=== PATIENT | female | born 2000 | race Caucasian/White ===

== ENCOUNTER 2024-06-03 16:46 | Emergency (ER) | payer BC, OTHER ==
[2024-06-03 18:05] LABS: BASOPHILS PERCENT AUTO 0.3 % (0.0-1.0); EOSINOPHILS PERCENT AUTO 0.3 % (0.0-6.0); HEMOGLOBIN 15.1 gm/dl (12.0-16.0); IMMATURE GRAN ABSOLUTE AUTO 0.04 K/mm3 (0.00-0.05); IMMATURE GRAN PERCENT AUTO 0.3 % (0.0-0.4); LYMPHOCYTES ABSOLUTE AUTO 1.8 K/mm3 (1.0-4.8); LYMPHOCYTES PERCENT AUTO 14.5 % (24.0-44.0); MEAN CORPUSCULAR HGB CONC 33.6 g/dl (32.0-36.0); MEAN CORPUSCULAR VOLUME 86.4 fl (83.0-99.0); MEAN PLATELET VOLUME 9.4 fl (9.4-12.3); MONOCYTES ABSOLUTE AUTO 0.8 K/mm3 (0.0-0.8); MONOCYTES PERCENT AUTO 6.7 % (0.0-8.0); NEUTROPHILS ABSOLUTE AUTO 9.5 K/mm3 (1.8-7.7); NEUTROPHILS PERCENT AUTO 77.9 % (41.0-71.0); PLATELET COUNT,PLT 260 K/mm3 (150-400); RED BLOOD CELL COUNT 5.21 M/mm3 (4.10-5.30); WHITE BLOOD CELL COUNT,WBC 12.18 K/mm3 (3.9-11.3)
[2024-06-03 18:30] LABS: A/G RATIO 1.2 (1-2); ALBUMIN 4.2 g/dl (3.4-5.0); ANION GAP 16.5 (5-15); BILIRUBIN TOTAL 0.2 mg/dL (0.2-1.0); BUN/CREATININE RATIO 18.8 (14-18); CALCIUM 9.2 mg/dL (8.5-10.1); CREATININE 0.8 mg/dL (0.55-1.02); EST CRCL DRUG DOSING (CG) 92.02 mL/min; POTASSIUM,K 3.5 mEq/L (3.5-5.1); PROTEIN TOTAL,TP 7.7 g/dl (6.4-8.2)
[2024-06-03 18:46] LABS: INR 0.97; PROTHROMBIN TIME 10.3 SECONDS (9.7-12.0)
[2024-06-03] MEDS: Sodium Chloride 0.9% 1,000 ML IV ONE (19:53)
[2024-06-03 19:54] LABS: BARBITURATE SCREEN,URINE NEGATIVE (CUTOFF=200); BENZODIAZEPINES SCREEN,URINE NEGATIVE (CUTOFF=150); BUPRENORPHINE SCREEN,URINE NEGATIVE (CUTOFF=10); METHADONE SCREEN, URINE NEGATIVE (CUTOFF=200); METHAMPHETAMINES SCREEN, URINE NEGATIVE (CUTOFF=500); OXYCODONE SCREEN,URINE NEGATIVE (CUT0FF=100); THC SCREEN,URINE 20 NG/ML NEGATIVE (CUTOFF=50)
[2024-06-03 19:58] LABS: AMPHETAMINES SCREEN, URINE NEGATIVE (CUTOFF=500)
[2024-06-03] MEDS: Ondansetron 4 MG/2 ML SDV IVPUSH ONE ×2 (19:59→20:48)
[2024-06-03] MEDS: Ondansetron 8 MG in Sodium Chloride 0.9% 50 ML IV ONE (20:32)
[2024-06-03] MEDS: LORazepam 2 MG/ML SDV IVPUSH ONE ×2 (20:33→20:44)
[2024-06-03] MEDS: Activated Charcoal/Water Susp 50 GM/240 ML Tube PO ONE ×2 (20:44)
[2024-06-03] MEDS: Sodium Chloride 0.9% 1,000 ML IV SCH (20:58)
[2024-06-03 21:40] LABS: ANION GAP 15.8 (5-15); BUN/CREATININE RATIO 18.6 (14-18); CALCIUM 8.1 mg/dL (8.5-10.1); CREATININE 0.7 mg/dL (0.55-1.02); EST CRCL DRUG DOSING (CG) 105.16 mL/min; POTASSIUM,K 3.8 mEq/L (3.5-5.1)
== END 2024-06-04 08:39 ==
LOC: JD.ED 16:46
DX: T45.0X2A Poisoning by antiallergic and antiemetic drugs, intentional self-harm, initial encounter (principal); T62.2X2 Toxic effect of other ingested (parts of) plant(s), intentional self-harm; F32.A Depression, unspecified; Z91.02 Food additives allergy status; Z91.018 Allergy to other foods
CPT/HCPCS: 36415; 80048; 80053; 80143; 80162; 80179; 80306; 80307; 81025; 82550; 83690; 83735; 84484; 85025; 85610; 87428; 93005; 96361; 96365; 96375; 99285; J2060; J2405; J3490; J7030; 93010